=== PATIENT | male | born 1965 | race African-American/Black ===

== ENCOUNTER 2021-02-22 12:00 | Emergency (ER) | payer MEDICAID ==
[~2021-02-22] VITALS: Ht 182.9 cm; Wt 86.0 kg
[2021-02-22] MEDS ORDERED: ONDANSETRON HCL 4MG/2ML INJ IV STA (13:11)
[2021-02-22] MEDS ORDERED: MORPHINE SULFATE 4 MG/ML CPJ (NOT FOR IM USE) IV STA (13:11)
[2021-02-22] MEDS ORDERED: SODIUM CHLORIDE 0.9% 1,000 ML IV ONE (13:15)
[2021-02-22 14:51] LABS: EOSINOPHILS % 2.3 % (0.0-5.0); HEMOGLOBIN. 10.7 g/dL (14.0-18.0); LYMPHOCYTES % 32.5 % (20.0-50.0); MEAN CORPUSCULAR HEMOGLOBIN 29.8 pg (28.0-32.0); MEAN CORPUSCULAR VOLUME 88.7 fL (80.0-94.0); MEAN PLATELET VOLUME 8.3 fl (7.4-10.4); MONOCYTES % 8.2 % (2.0-8.0); PLATELET 345 x1000/uL (130-400); RED BLOOD CELL COUNT 3.61 mill/uL (4.7-6.1); RED CELL DISTRIBUTION WIDTH 14.4 % (11.6-14.6)
[2021-02-22 14:55] LABS: CHLORIDE 103 mEq/L (98-107)
[2021-02-22 15:00] LABS: PROTHROMBIN TIME 11.2 sec (9.6-11.0)
[2021-02-22] MEDS ORDERED: CEFTRIAXONE 1 G PREMIX 50 ML IV ONE (15:00)
[2021-02-22 15:13] LABS: CLARITY URINE CLOUDY (CLEAR); COLOR URINE YELLOW (YELLOW); KETONES URINE TRACE (NEGATIVE); LEUKOCYTE ESTERASE URINE 3+ (NEGATIVE); NITRITE URINE POSITIVE (NEGATIVE); OCCULT BLOOD URINE TRACE (NEGATIVE); PROTEIN URINE TRACE (NEGATIVE); SPECIFIC GRAVITY URINE 1.023 (1.005-1.030)
[2021-02-22] MEDS ORDERED: DOXY100C2 MT (15:59)
[2021-02-22] MEDS ORDERED: IBUP-2028 MT (15:59)
[2021-02-22 16:26] VITALS: BP 165/92
[2021-02-26 04:07] LABS: NEISSERIA GONORRHOEAE NAA Negative (Negative)
== END 2021-02-22 17:20 | disposition home or self-care (01) ==
LOC: ER 12:13 → CANBEDREQ 16:22 → ER 17:20
DX: N45.3 Epididymo-orchitis (principal); N43.40 Spermatocele of epididymis, unspecified; J45.909 Unspecified asthma, uncomplicated; I10 Essential (primary) hypertension; G89.29 Other chronic pain; M54.9 Dorsalgia, unspecified; Z98.890 Other specified postprocedural states
CPT/HCPCS: 36415; 76870; 80053; 81003; 85025; 85610; 87077; 87086; 87186; 87491; 87591; 93976; 96374; 96375; 99284; J0696; J2270; J2405; J7030